=== PATIENT | female | born 1940 | race Caucasian/White ===

== ENCOUNTER 2021-10-17 07:45 | Outpatient (CLI) | payer MEDICARE, OTHER, SELFPAY ==
--- NOTE | 2021-10-28 09:26 | WPDSLEEPSTUD ---
Sleep Study Date of Study: 10/17/21 Ordering Provider: Sury Louie MD Interpreting Physician: Regina Molina MD Sleep Study Type: CPAP Titration Height: 1.65 m Weight: 93.894 kg Body Mass Index: 34.4 Neck Circumference (inches): 14.5 [place]: 6 Reason for Sleep Study History of sleep apnea with initial testing over 10 years ago, used CPAP in the past; now has intermittent atrial fibrillation, poor quality sleep Sleep History Leatha Aparicio is a 80 year old female with who atrial fibrillation referred by her entry level staff accountant for evaluation. She has a dual-chamber pacemaker. She had a sleep study over 10 years ago showing severe obstructive sleep apnea and has used CPAP for years. She has a difficult time falling asleep, she wakes up in the cook helper dessert hours and has excessive daytime sleepiness. There is a family history with her oldest daughter also having sleep apnea. She occasionally awakens from sleep feeling short of breath and occasionally awakens at night with heartburn, belching or coughing. She does not snore and others do not complain that she snores loudly. She constantly has trouble sleeping with a cold. She does not wake up gasping for breath at night or have breathing problems at night reported to her by others. She does not sweat excessively at night or notice her heart pounding or beating irregularly at night. She constantly falls asleep during the day, involuntarily but never while driving. She does not have loss of muscle tone with strong emotion. She does not report daytime difficulties due to excessive sleepiness. She occasionally feels paralyzed on waking or falling asleep. She does not have vivid dreamlike scenes upon awakening or falling asleep. She does not feel afraid to go to sleep. She does not have nightmares. She constantly remembers her dreams. She does not have racing thoughts, feelings of sadness, depression or anxiety. She does not notice parts of her body jerking and she does not kick at night. She denies having crawling or aching feelings in her legs or any kind of leg pain at night. She does not have morning jaw pain. She does not grind her teeth during sleep. She occasionally is awakened by pain at night, occasionally wakes up feeling stiff in the morning with sore achy muscles and pain in the neck and spine. She has fatigue. Normal bedtime is 10:30 p.m. taking a few hours to fall asleep, waking 3 times at night, and she reports staying awake sometimes for a couple of hours. While awake, she goes to the bathroom. Her morning wake time varies. She takes naps in the afternoon or evening. A short nap 10 or 15 minutes long may be refreshing. She is always drowsy after waking and she remains sleepy throughout the day. Habits: Denies caffeine, alcohol and recreational drugs. [facility] Past Medical History Medical History (Updated 10/28/21 @ 12:18 by Regina Molina MD) Atrial fibrillation, chronic Cardioversion 07/08/2021, converted to sinus, return to atrial fib Chronic back pain Chronic kidney disease History of COVID-19 02/17/2021 Hyperlipidemia Hypertension Obstructive sleep apnea Parkinsons disease Surgical History Surgical History (Updated 10/28/21 @ 09:46 by Regina Molina MD) History of cholecystectomy History of permanent cardiac pacemaker placement V sensed V paced Social History Social History (Updated 10/28/21 @ 09:46 by Regina Molina MD) Social History: . Smoking status: Never smoker Alcohol intake: never Substance use: never Medications Medications: Carbidopa levodopa 25-100 Allopurinol 100 mg Atorvastatin 20 mg daily Vitamin B12 a 1000 mcg daily Apixaban 5 mg b.i.d. Ergocalciferol vitamin D2 1250 mcg weekly Calcitriol 0.25 mcg 1 capsule daily Amlodipine 10 mg, half tablet daily Tylenol capsule p.r.n. Lisinopril 20 mg 1 and half tablets daily Metoprolol tartrate 25 mg b.i.d. Sleep Procedure This test was performed using
[2021-10-28 12:19] VITALS: BMI 34.4
== END 2021-10-18 07:07 | disposition home or self-care (01) ==
LOC: ANHCSM 07:48
PROVIDERS: PCP Internal Medicine
DX: G47.33 Obstructive sleep apnea (adult) (pediatric) (principal)
CPT/HCPCS: 95811

== ENCOUNTER 2023-10-09 16:34 | Inpatient (IN) | payer MEDICARE, OTHER, SELFPAY ==
[2023-10-09] VITALS (13 sets, daily range): BP systolic 95–145; BP diastolic 70–105; PULSE 85–111; RESP 15–28; TEMP 36.5–36.9; O2SAT 94–100; BMI 34.5
--- NOTE | ~2023-10-09 | CT_ITS ---
EXAMINATION: CT brain wo con DATE: 10/09/2023 18:07 INDICATION: syncope . TECHNIQUE: Computed tomography (CT) of the head was performed without intravenous contrast. The mA wa s adjusted according to patient size. Iterative reconstruction technique was employed. The dose-lengt h product was 605.33 mGy-cm. COMPARISON: None. FINDINGS: No acute intracranial hemorrhage or extra-axial fluid collection. No hydrocephalus, mass, or herniation. No acute ischemic infarct. Unremarkable dural venous sinus attenuation. No acute osseous abnormality. The aerated spaces are clear. Moderate atrophy and chronic white matter change. Atherosclerotic intracranial calcification. Bilater al lens replacements. Multiple subcutaneous cysts many of which have wall calcification. IMPRESSION: No acute intracranial process. Reviewed, dictated and finalized at location K.
--- NOTE | ~2023-10-09 | XR_ITS ---
EXAMINATION: XR chest 1V portable Exam Date/Time: 10/09/2023 17:30 CDT HISTORY: syncope Comparison: None. RESULT: Lines, tubes, and devices: Left chest pacer with intact leads. Lungs and pleura: Very low lung volumes with crowding. Streaky bibasilar opacities. Cardiomediastinal silhouette: Stable. Other: No acute osseous or upper abdominal finding. IMPRESSION: Study limited by degree of inspiration. Low volumes with crowding and likely bibasilar atelectasis. Reviewed, dictated and finalized at location K. IMPRESSION: Study limited by degree of inspiration. Low volumes with crowding and likely bi basilar atelectasis.
--- NOTE | 2023-10-09 16:45 | ED.SEIZURE ---
HPI - Seizure General Chief Complaint: Seizure Stated Complaint: ?SEIZURE Time Seen by Provider: 10/09/23 16:44 Source: patient and EMS Mode of arrival: EMS History of Present Illness HPI Narrative: 82 years old white female came to the hospital by ambulance from home with possible seizure-like activity. Her reported to the EMT that patient was sitting suddenly I rolled backward, mouth open, unresponsive to his commands, lasted for few minutes then back to normal with nausea and vomiting and dizziness. patient's family telling me that patient blacked out 2 times in the past 6 weeks and today is 3. Was hospitalized at [facility] and got discharge 5 days ago without a specific diagnosis. Related Data Allergies Allergy/AdvReac Type Severity Reaction Status Date / Time Penicillins Allergy Rash Verified 10/09/23 16:45 Review of Systems Review of Systems: All systems reviewed & are unremarkable except as noted in HPI and below PMFSH Past Medical History Medical History Atrial fibrillation, chronic Cardioversion 07/08/2021, converted to sinus, return to atrial fib Chronic back pain Chronic kidney disease History of COVID-19 02/17/2021 Hyperlipidemia Hypertension Obstructive sleep apnea Parkinsons disease Surgical History Surgical History History of cholecystectomy History of permanent cardiac pacemaker placement V sensed V paced Social History Social History Social History: . Smoking status: Never smoker Alcohol intake: never Substance use: never Exam Narrative: General appearance: Well-developed, well-nourished Holding vomiting bag in hands, looks ill Skin: Normal color Head: Normocephalic, nontraumatic Eyes: Clear conjunctiva ENT: Oropharynx normal, ears normal, nose normal Neck: Supple, nontender Chest and respiratory: Airway patent, no respiratory distress, no accessory muscle use Heart: Regular rate/rhythm Abdomen: Soft, nontender, no organomegaly, quiet bowel sounds Vascular: Normal peripheral pulses, normal capillary refill. Musculoskeletal: Normal range of motion, nontender back Neurologic: Alert and oriented ?3, CAMPAIGN ADVISOR is normal as tested, no gross motor deficit Course Vital Signs Vital signs: Vital Signs Temperature 36.9 C 10/09/23 16:35 Pulse Rate 94 10/09/23 16:35 Respiratory Rate 15 10/09/23 16:35 Blood Pressure 114/72 10/09/23 16:35 Pulse Oximetry 96 10/09/23 16:35 Oxygen Delivery Room Air 10/09/23 16:35 Temperature 36.9 C 10/09/23 16:35 Pulse Rate 88 10/09/23 21:17 Respiratory Rate 18 10/09/23 21:17 Blood Pressure 119/70 10/09/23 19:45 Pulse Oximetry 99 10/09/23 21:17 Oxygen Delivery Room Air 10/09/23 16:47 MDM - Seizure Lab Data 10/09/23 17:13 10/09/23 17:13 Labs: Lab Results 10/09/23 10/09/23 Range/Units 17:13 20:02 WBC 11.6 H (4.5-10.0) K/mm3 RBC 4.77 (4.2-5.4) M/mm3 Hgb 14.3 (12.0-15.0) g/dL Hct 46.1 (37.0-47.0) % MCV 96.6 (80-100) fl MCH 30.0 (26-34) pg MCHC 31.0 L (32-36) g/dl RDW 14.8 H (11.5-14.5) % Plt Count 209 (150-375) k/mm3 MPV 10.9 H (7.4-10.4) fl Immature Gran % (Auto) 0.8 H (0-0.5) % Neut % (Auto) 71.8 (45.5-73.1) % Lymph % (Auto) 17.4 L (18.3-44.2) % [place] % (Auto) 9.3 H (2.6-8.5) % Eos % (Auto) 0.5 (0-4.4) % Baso % (Auto) 0.2 (0.2-1.2) % Lymph # (Auto) 2.02 (0.9-3.2) K/mm3 [place] # (Auto) 1.1 H (0.1-0.6) K/mm3 Eos # (Auto) 0.1 (0-0.3)
--- NOTE | 2023-10-09 16:56 | ECG_ITS ---
SEE SCANNED COPY FOR CONFIRMED REPORT MTDD
[2023-10-09 17:18] LABS: Basophils Percent Auto 0.2 % (0.2-1.2); Eosinophils Absolute Auto 0.1 K/mm3 (0-0.3); Eosinophils Percent Auto 0.5 % (0-4.4); Hematocrit 46.1 % (37.0-47.0); Hemoglobin 14.3 g/dL (12.0-15.0); Immature Granulocyte Absolute 0.09 K/mm3 (0.00-0.031); Immature Granulocyte Percent A 0.8 % (0-0.5); Lymphocytes Absolute Auto 2.02 K/mm3 (0.9-3.2); Lymphocytes Percent Auto 17.4 % (18.3-44.2); Mean Corpuscular Volume 96.6 fl (80-100); Mean Platelet Volume 10.9 fl (7.4-10.4); Monocytes Absolute Auto 1.1 K/mm3 (0.1-0.6); Monocytes Percent Auto 9.3 % (2.6-8.5); Neutrophils Absolute Auto 8.4 K/mm3 (1.3-6.7); Neutrophils Percent Auto 71.8 % (45.5-73.1); Platelet Count Result 209 k/mm3 (150-375); Red Blood Count 4.77 M/mm3 (4.2-5.4); Red Cell Distribution Width 14.8 % (11.5-14.5); White Blood Count 11.6 K/mm3 (4.5-10.0)
[2023-10-09] MEDS: SODIUM CHLORIDE 0.9% IV 1,000 ML 999 ML IV CONT (17:20)
[2023-10-09] MEDS: MECLIZINE HCL 25 MG TABLET PO (17:20)
[2023-10-09] MEDS: diazePAM INJ (*CRX) 10 MG/2 ML SYRINGE 5 MG IV PUSH (17:21)
[2023-10-09] MEDS: ONDANSETRON INJ 4 MG/2 ML VIAL 8 MG IV PUSH (17:23)
[2023-10-09 17:28] LABS: Alanine Aminotransferase 6 U/L (6-35); Albumin Level 4.1 g/dL (3.5-5.1); Alkaline Phosphatase 95 U/L (38-126); Anion Gap 7 mmol/L (4-12); Aspartate Amino Transferase 13 U/L (14-36); Bilirubin,Total 0.8 mg/dL (0.2-1.3); Blood Urea Nitrogen 27 mg/dL (7-17); Calcium 9.6 mg/dL (8.4-10.2); Carbon Dioxide 27 mmol/L (22-30); Chloride 102 mmol/L (98-107); Estimated CRCL calculation 35 ml/min; Estimated Glomerular Filt Rate 39; Glucose 152 mg/dL (65-110); Potassium 3.6 mmol/L (3.4-5.0); Sodium 136 mmol/L (137-145)
[2023-10-09 17:29] LABS: INR 1.3; Partial Thromboplastin Time 23.5 Seconds (22.3-36.8); Prothrombin Time 17.3 Seconds (11.1-14.7)
[2023-10-09 17:40] LABS: Troponin I < 0.012 ng/mL (0.000-0.034)
--- NOTE | 2023-10-09 20:13 | PM.IMHP ---
H&P: HPI History of Present Illness Date/Time: 10/09/23 20:13 Chief Complaint: syncope Narrative: This is an 82-year-old female with past medical history significant for hypertension, gout, obstructive sleep apnea, atrial fibrillation, chronic back pain, chronic kidney disease, Parkinson's disease. Patient was brought to the emergency room after having episode of syncope while sitting at the table patient had a brief loss of consciousness, according to patient she had this recent admission to outside hospital for the same reason with extensive workup which was essentially nonrevealing. patient denies any fevers, rigors, chills, nausea, vomiting, diarrhea, chest pain, abdominal pain, palpitations, No incontinence of stool or urine. patient has been placed in observation for further evaluation management and treatment. EXAMINATION:? XR chest 1V portable Exam Date/Time:? 10/09/2023 17:30 CDT HISTORY: syncope ? Comparison:? None. RESULT: Lines, tubes, and devices:? Left chest pacer with intact leads. Lungs and pleura:? Very low lung volumes with crowding. Streaky bibasilar opacities. Cardiomediastinal silhouette:? Stable. Other:? No acute osseous or upper abdominal finding. ? IMPRESSION: Study limited by degree of inspiration. Low volumes with crowding and likely bibasilar atelectasis. EXAMINATION: CT brain wo con DATE: 10/09/2023 18:07 INDICATION: syncope . TECHNIQUE: Computed tomography (CT) of the head was performed without intravenous contrast. The mA was adjusted according to patient size. Iterative reconstruction technique was employed. The dose-length product was 605.33 mGy-cm. COMPARISON: None. FINDINGS: No acute intracranial hemorrhage or extra-axial fluid collection. No hydrocephalus, mass, or herniation. No acute ischemic infarct. Unremarkable dural venous sinus attenuation. No acute osseous abnormality. The? aerated spaces are clear. Moderate atrophy and chronic white matter change. Atherosclerotic intracranial calcification. Bilateral lens replacements. Multiple subcutaneous cysts many of which have wall calcification. IMPRESSION:? No acute intracranial process. Review of Systems Review of Systems: syncope Constitutional: Constitutional: Denies chills, Denies fatigue, Denies fever(s), Denies malaise and Denies weakness Eyes: Eyes: Denies change in vision ENT: Denies dysphagia and Denies odynophagia Cardiovascular: Cardiovascular: Denies chest pain, Denies leg edema, Denies radiating jaw, neck or arm pain and Denies palpitations Respiratory: Respiratory: Denies chest congestion and Denies cough Gastrointestinal: Gastrointestinal: Denies abdominal pain, Denies diarrhea, Denies nausea and Denies vomiting Genitourinary: Genitourinary: Denies dysuria Musculoskeletal: Musculoskeletal: Denies myalgias Integumentary/Breasts: Skin/Breast: Denies rash Neurologic: Denies focal weakness and Denies Sensory deficit (Neuro) Psychiatric: Psychiatric: Reports no additional psychiatric complaints and Reports as per HPI Endocrine: Endocrine: Denies cold intolerance, Denies fatigue, Denies flushing, Denies heat intolerance, Denies polyphagia, Denies polydipsia, Denies polyuria and Denies palpitations Hematologic/Lymphatic: Hematologic/Lymphatic: Reports no additional hematologic/lymphatic complaints and Reports as per HPI Allergic/Immunologic: Allergic/Immunologic: Reports no additional allergic/immunologic complaints and Reports as per HPI PMFSH Past Medical History Medical History (Updated 10/10/23 @ 02:37 by Benito Prado MD) Atrial fibrillation, chronic Cardioversion 07/08/2021, converted to sinus, return to atrial fib Chronic back pain Chronic kidney disease History of COVID-19 02/17/2021 Hyperlipidemia Hypertension Obstructive sleep apnea Parkinsons disease Surgical History Surgical History History
[2023-10-09 20:15] LABS: Appearance Urine Cloudy (Clear); Bacteria Urine 2+ /hpf; Bilirubin Urine Negative (Negative); Blood Urine Negative (Negative); Color Urine Yellow (Yellow); Glucose Urine UA Negative (Negative); Ketones Urine Trace mg/dL (Negative); Leukocyte Esterase Ur Negative LEU/UL (Negative); Nitrate Urine Negative (Negative); Non Pathogenic Casts 0-2; Protein Urine Negative (Negative); RBC Urine 0-2 /hpf (0-2); Specific Grav Ur 1.017 (1.001-1.035); Squamous Epithelial Cell Urine Few /hpf (Few); WBC Urine 0-5 /hpf (0-3)
[2023-10-09 20:24] LABS: Add Urine Microscopic? YES
[2023-10-09] MEDS: SODIUM CHLORIDE 0.9% IV 1,000 ML 100 ML IV CONT (21:44)
[2023-10-10] VITALS (10 sets, daily range): BP systolic 99–125; BP diastolic 48–76; PULSE 78–96; RESP 14–20; TEMP 36.3–36.7; O2SAT 95–99; BMI 34.5
[2023-10-10] MEDS: SODIUM CHLORIDE 0.9% IV 1,000 ML 100 ML IV CONT (09:10)
[2023-10-10] MEDS: APIXABAN 5 MG TABLET PO ×2 (09:11→17:28)
[2023-10-10] MEDS: ATORVASTATIN 20 MG TABLET PO (09:23)
[2023-10-10] MEDS: allopurinoL 100 MG TABLET PO ×2 (09:23→17:28)
[2023-10-10] MEDS: CARBIDOPA/LEVODOPA 25/100 MG TABLET 3 TABLET PO ×3 (09:23→17:28)
--- NOTE | 2023-10-10 10:42 | PM.IMPN ---
Progress Note: A&P Assessment and Plan (1) Syncope: Code(s): R55 - Syncope and collapse Status: Acute Assessment and Plan: Patient states this started back in August and continues to happen about once a week and lasts for about 5 minutes -does not sound like BPPV entirely since head movements do not exacerbate s/s -no significant abnormalities with her electrolytes, pt reports no changes in diet -will interrogate pacemaker -will obtain [facility] records -CTH this stay WN, does show atrophy and chronic white matter changes -patient would benefit from MRI but she has a pacemaker so this cannot be done here. Could consider cerebellar pathology but patient does not have other cerebellar symptoms on exam. No other symptoms of stroke -will obtain orthostatic blood pressures as patient has history of Parkinson's, could be autonomic dysfunction -will consult neurology -no infection suspected (2) Obstructive sleep apnea: Code(s): G47.33 - Obstructive sleep apnea (adult) (pediatric) Status: Acute Assessment and Plan: CPAP at nighttime (3) Chronic back pain: Code(s): M54.9 - Dorsalgia, unspecified; G89.29 - Other chronic pain Status: Acute Assessment and Plan: Tylenol p.r.n. (4) Atrial fibrillation, chronic: Code(s): I48.20 - Chronic atrial fibrillation, unspecified Status: Acute Assessment and Plan: Currently has a pacemaker which is going to be interrogated -continue Eliquis for stroke prevention (5) Chronic kidney disease: Code(s): N18.9 - Chronic kidney disease, unspecified Status: Acute Assessment and Plan: Monitor labs (6) Parkinsons disease: Code(s): G20 - Parkinson's disease Status: Acute Assessment and Plan: continue carbidopa levodopa -neurology consult Time Spent With Patient Time with patient: 25 - 35 minutes Subjective Date/time seen: 10/10/23 10:42 Interval history: Pt is a 82-year-old female here for syncope. Patient states that she was in the kitchen and felt weak in that she was going to pass out so she lowered herself to the floor. She does not think she lost consciousness but says she was close. She denies chest pain, ringing in the ears, or worsening dizziness with head movements. She also states laying down does not make it any worse or any better. She currently feels lightheaded a little bit. She said this happened for the 1st time in August and was hospitalized at [facility] with no findings. She isn't for sure what all they did but she did get some scans. She has no viral symptoms and overall feels okay in that regard. She has been walking to the bathroom without issue. The last time the dizziness happen was 1 week ago. She denies nausea, vomiting, weight loss, chest pain or shortness of breath. She says she is eating and drinking fine. She has no focal weaknesses and denies vision changes or speech problems. She does have a history of Parkinson's that is unchanged. She sees a neurologist in [place] Review of Systems Review of Systems: All systems reviewed & are unremarkable except as noted in HPI and below Exam Narrative: General: Well developed well nourished patient in NAD HEENT: normocephalic Neck: supple Neuro: Alert and oriented x4. Cranial nerves 2-12 intact. Equal strength in the upper and lower extremities bilaterally. No evidence of slurred speech or aphasia. Able to do [id number], no tremor CV:RRR. Telemetry shows occasional pacing with occasional PVCs and known AFib Resp:CTA Abd: Soft, non distended. No pain to palpation. Positive bowel sounds Extremities: No swelling, erythema, or pain to palpation. Objective Data Vital Signs Vital Signs: Vital Signs - 24 hr 10/09/23 16:35 10/09/23 16:47 10/09/23 16:47 Temperature 98.4 F Pulse Rate 94 Respiratory Rate 15 Blood Pr
--- NOTE | 2023-10-10 13:00 | WPDNEURCNPN ---
Assessment and Plan Assessment and plan (1) Parkinsons disease: Code(s): G20 - Parkinson's disease Status: Acute (2) Atrial fibrillation, chronic: Code(s): I48.20 - Chronic atrial fibrillation, unspecified Status: Acute (3) Syncope: Code(s): R55 - Syncope and collapse Status: Acute Plan 1. Syncopal episode with ongoing history of atrial fibrillation and ongoing Parkinson disease as she will need the observation on Med tele medication will be continued as such with no changes in the antiparkinson medication. Consult date: 10/10/23 HPI: Leatha Aparicio is a 82 year old female Admitted to the hospital through the emergency room where she was brought by the ambulance with the possibility of seizure-like activity . Her reported to the EMT the patient was sitting suddenly rolled backwards mouth became open he remained unresponsive to the verbal commands the whole episode lasted for few minutes then she was back to normal without nausea vomiting and dizziness patient has had 2 episodes in the past 6 weeks the most recent 1 was 3rd 1 he was admitted to the [facility] and got discharged without specific diagnosis. She is not allergic to any medications. She has ongoing history of chronic atrial fibrillation has undergone cardioversion which converted to sinus in July of 2021 but returned to atrial fibrillation again, the course is complicated by the chronic back pain, hyperlipidemia, hypertension, obstructive sleep apnea, Parkinson's disease. She has undergone permanent cardiac pacemaker placement her initial exam in the emergency room were grossly nonfocal. Vital signs were normal CBC was normal BMP was normal except blood sugar 152 and routine lab studies were negative head CT scan was negative for the bleed or major vascular disease EKG was with atrial fibrillation and 89 beats per minute with aberrant conduction and ventricular premature complexes head CT scan negative, patient has continued her anti parkinsonian medication 3 tablets 3 times a day with meals in addition to atorvastatin 20mg daily and apixaban 5mg twice a day [facility] Past Medical History Medical History Atrial fibrillation, chronic Cardioversion 07/08/2021, converted to sinus, return to atrial fib Chronic back pain Chronic kidney disease History of COVID-19 02/17/2021 Hyperlipidemia Hypertension Obstructive sleep apnea Parkinsons disease Surgical History Surgical History History of cholecystectomy History of permanent cardiac pacemaker placement V sensed V paced Social History Social History Social History: . Smoking status: Never smoker Alcohol intake: never Substance use: never Substance use type: does not use Do You Feel Safe in your Home?: Yes Lack of Transportation: No Lack of Food: Never True Current Housing: I Have Housing Concerned About Future Housing: No Difficulty Paying Gas/Electric Bills: No Difficulty Paying for Meds: No Currently Unemployed: No Education: High School Diploma/GED Difficulty w/ Childcare or Family Care: No Spiritual care concerns: No Meds Home Medications and Allergies Home Medications Medication Instructions Recorded Confirmed Type B12 500 mg PO DAILY 10/09/23 10/09/23 History allopurinol 100 mg tablet 100 mg PO BID 10/09/23 10/09/23 History amlodipine 5 mg tablet 5 mg PO DAILY 10/09/23 10/10/23 History apixaban 5 mg tablet (Eliquis) 5 mg PO BID 10/09/23 10/10/23 History atorvastatin 20 mg tablet 20 mg PO DAILY 10/09/23 10/09/23 History calcitriol 0.25 mcg capsule 0.25 mcg PO BID 10/09/23 10/09/23 History carbidopa 25 mg-levodopa 100 mg 3 tablet PO TID 10/09/23 10/10/23 History tablet ergocalciferol (vitamin D2) 1,250 1,250 mcg PO WEEKLY 10/09/23 10/09/23 History mcg (50,000 u
[2023-10-10 19:56] LABS: Hemoglobin A1C 6.2 % (<5.7)
[2023-10-11] VITALS (11 sets, daily range): BP systolic 120–136; BP diastolic 51–77; PULSE 74–110; RESP 18–20; TEMP 36.3–37.4; O2SAT 95–100
[2023-10-11 06:55] LABS: Hematocrit 40.5 % (37.0-47.0); Hemoglobin 12.7 g/dL (12.0-15.0); Mean Corpuscular HGB Conc 31.4 g/dl (32-36); Mean Corpuscular Hemoglobin 30.5 pg (26-34); Mean Corpuscular Volume 97.4 fl (80-100); Mean Platelet Volume 11.6 fl (7.4-10.4); Platelet Count Result 182 k/mm3 (150-375); Red Blood Count 4.16 M/mm3 (4.2-5.4); Red Cell Distribution Width 14.9 % (11.5-14.5); White Blood Count 7.9 K/mm3 (4.5-10.0)
[2023-10-11 07:19] LABS: Anion Gap 3 mmol/L (4-12); Blood Urea Nitrogen 20 mg/dL (7-17); Calcium 9.5 mg/dL (8.4-10.2); Carbon Dioxide 29 mmol/L (22-30); Chloride 106 mmol/L (98-107); Estimated CRCL calculation 37 ml/min; Estimated Glomerular Filt Rate 43; Glucose 95 mg/dL (65-110); Potassium 4.2 mmol/L (3.4-5.0); Sodium 138 mmol/L (137-145)
[2023-10-11 07:42] LABS: Glucose Point of Care 108 mg/dl (65-105)
[2023-10-11] MEDS: allopurinoL 100 MG TABLET PO ×2 (09:01→17:17)
[2023-10-11] MEDS: APIXABAN 5 MG TABLET PO ×2 (09:01→17:17)
[2023-10-11] MEDS: ATORVASTATIN 20 MG TABLET PO (09:01)
[2023-10-11] MEDS: CARBIDOPA/LEVODOPA 25/100 MG TABLET 3 TABLET PO ×3 (09:01→17:17)
[2023-10-11 11:44] LABS: Glucose Point of Care 224 mg/dl (65-105)
--- NOTE | 2023-10-11 15:20 | PM.IMPN ---
Progress Note: A&P Assessment and Plan (1) Syncope: Code(s): R55 - Syncope and collapse Status: Acute Assessment and Plan: Patient states this started back in August and continues to happen about once a week and lasts for about 5 minutes -CTH this stay WNL, does show atrophy and chronic white matter changes -no significant abnormalities with her electrolytes, pt reports no changes in diet -orthostatic blood pressures are okay 106/48 -> 125/76 -> 123/63 -TSH normal. -does not sound like BPPV entirely since head movements do not exacerbate s/s. Could consider cerebellar pathology but patient does not have other cerebellar symptoms on exam. No other symptoms of stroke -will interrogate pacemaker and pending -will obtain [facility] records; no records available yet so will resend request -patient would benefit from MRI but she has a pacemaker so this cannot be done here. -neurology consulted and appreciate their input. Willdefer to neurology about weaning patient off of Sinemet If no records forthcoming, will proceed with CTA brain. Check B12/folate Continue PT/OT Family feels the left arm BP is lower than right. Consider subclavian steal. Check BP in both arms. (2) Obstructive sleep apnea: Code(s): G47.33 - Obstructive sleep apnea (adult) (pediatric) Status: Acute Assessment and Plan: CPAP at nighttime (3) Chronic back pain: Code(s): M54.9 - Dorsalgia, unspecified; G89.29 - Other chronic pain Status: Acute Assessment and Plan: Tylenol p.r.n. (4) Atrial fibrillation, chronic: Code(s): I48.20 - Chronic atrial fibrillation, unspecified Status: Acute Assessment and Plan: Currently has a pacemaker which is going to be interrogated -continue Eliquis for stroke prevention (5) Chronic kidney disease: Code(s): N18.9 - Chronic kidney disease, unspecified Status: Acute Assessment and Plan: Monitor labs (6) Parkinsons disease: Code(s): G20 - Parkinson's disease Status: Acute Assessment and Plan: continue carbidopa levodopa -neurology following Wean off Sinemet per neurology recommendation (7) Diabetes mellitus: Code(s): E11.9 - Type 2 diabetes mellitus without complications Status: Acute Assessment and Plan: A1c 6.2. The patient's blood glucose was reviewed on 10/10 Glucose elevated at times Continue AccuCheks covering with sliding scale. Hypoglycemia protocol available as needed. Continue to monitor. Colorer consult Plan DVT prophylaxis - Giovanny Code status - full Subjective Date/time seen: 10/11/23 15:20 Interval history: 82yo female with Parkinson, AFib and CKD here for pre-syncope. Assuming care. Chart reviewed. Patient was sitting at the kitchen table when she developed dizziness with gurgling sounds then nausea and vomiting. No seizure like activity. No urine incontinence. no tongue biting. She remembers most of the event and does not think she passed out. Had similar episode with negative workup at a different hospital. No new medications. No OTC medications. Started on Sinemet about 5 months ago. No fever or chills. No furthre n/v. Eating normally since the event. She sees a neurologist in [place] who is recommendeing weaning her off of the Sinemet. Also with numbness from her umbilicus to her feet and involving her hands which started 3 weeks ago. Exam Narrative: AF 97.3 132/75 92 20 98% ra Gen - NARD Chest - CTA bilaterally, nml RR CV - irregularly irregular. Tele showing paced rhythm otherwise AFib with controlled rate Abd - Soft, NT/ND, Positive BS Ext - No pedal edema Neuro - Alert and oriented. Nonfocal exam. Heel to garay okay. Psych - Nml mood and affect Skin - Warm and dry Objective Data Vital Signs Vital Signs: Vital Signs - 24 hr 10/10/23 15:48 10/10/23 16:00 10/10/23 20:00 Temperature
[2023-10-11 16:39] LABS: Glucose Point of Care 96 mg/dl (65-105)
--- NOTE | 2023-10-11 19:11 | WPDNEUROPN ---
Progress Note: A&P Assessment and Plan (1) Diabetes mellitus: Code(s): E11.9 - Type 2 diabetes mellitus without complications Status: Acute (2) Parkinsons disease: Code(s): G20 - Parkinson's disease Status: Acute (3) Chronic kidney disease: Code(s): N18.9 - Chronic kidney disease, unspecified Status: Acute (4) Atrial fibrillation, chronic: Code(s): I48.20 - Chronic atrial fibrillation, unspecified Status: Acute (5) Syncope: Code(s): R55 - Syncope and collapse Status: Acute (6) Obstructive sleep apnea: Code(s): G47.33 - Obstructive sleep apnea (adult) (pediatric) Status: Acute Plan I would suggest continued cardiac evaluation and possible a loop recorder in view of the fact that she has had 3 spells in the last month or so. With regard to Parkinson disease he follows with another neurologist, At present she does not seem to be any need for immediate changes in the current medications. Subjective Date/time seen: 10/11/23 19:11 Interval history: the patient admitted with episode of loss of consciousness. She apparently had 2 similar episodes for which she was taken to [facility] and a investigations did not reveal any abnormality. She also has been known to have Parkinson's disease and is on treatment for the same. She has been diagnosed to atrial fibrillation. She has a cardiac pacemaker in place. Hence he is unable to get MRI. According the patient she has very brief spells lasting for 10 seconds or so in with the lapse of awareness. She did not have any tongue biting or incontinence of urine. She does not get confused after that. She has not had any significant warning prior to the onset of these spells. She has had some cardiac workup done at [facility] which did not show any abnormality. Review of Systems Review of Systems: All systems reviewed & are unremarkable except as noted in HPI and below Exam Narrative: Fully conscious alert oriented to self time place and person. Speech is fluent and articulate. No aphasia or dysarthria. No nuchal rigidity. No carotid bruit. motor system normal power and tone both upper and lowers except for mild cogwheeling and resting tremor noted on right more than left upper limb. No dyskinesias seen. no other significant abnormalities. Objective Data Vital Signs Vital Signs: Vital Signs - 24 hr 10/10/23 20:00 10/10/23 20:00 10/11/23 00:00 Temperature 36.7 C 37.3 C Pulse Rate 86 81 80 Respiratory Rate 16 20 Blood Pressure 114/68 135/72 Pulse Oximetry 99 100 Oxygen Delivery 10/10/23 22:00 10/11/23 03:39 10/11/23 00:00 Temperature Pulse Rate 78 74 84 Respiratory Rate Blood Pressure Pulse Oximetry 98 99 Oxygen Delivery CPAP CPAP 10/11/23 04:00 10/11/23 04:00 10/11/23 07:52 Temperature 37.4 C 36.5 C Pulse Rate 89 77 88 Respiratory Rate 18 20 Blood Pressure 124/51 L 120/74 Pulse Oximetry 100 97 Oxygen Delivery 10/11/23 08:00 10/11/23 11:51 10/11/23 12:05 Temperature 36.3 C L Pulse Rate 91 103 H Respiratory Rate 20 Blood Pressure 132/75 Pulse Oximetry 98 Oxygen Delivery Room Air 10/11/23 12:00 10/11/23 11:45 10/11/23 16:00 Temperature Pulse Rate 92 110 H Respiratory Rate Blood Pressure 136/64 Pulse Oximetry Oxygen Delivery 10/11/23 16:00 Temperature 36.3 C L Pulse Rate 89 Respiratory Rate 18 Blood Pressure 134/77 Pulse Oximetry 98 Oxygen Delivery Intake/Output Intake/Output: Intake & Output 10/08/23 10/09/23 10/10/23 10/11/23 23:59 23:59 23:59 23:59 Intake Total 1000 2726 1030 Balance 1000 2726 1030 Meds/Results Medications: Active Medications Generic Name Dose Route Start Last Admin Trade Name Freq PRN Reason Stop Dose Admin Acetaminophen 650 mg 10/09/23 20:14 Acetaminophen 325 Mg Tablet PO Q4H PRN Mild Pain (1-3) or Fever
[2023-10-11 20:10] LABS: Glucose Point of Care 169 mg/dl (65-105)
[2023-10-12] VITALS (7 sets, daily range): BP systolic 125–137; BP diastolic 48–84; PULSE 75–112; RESP 18–22; TEMP 36.2–36.8; O2SAT 97–100
[2023-10-12 07:29] LABS: Glucose Point of Care 166 mg/dl (65-105)
[2023-10-12 07:49] LABS: Anion Gap 5 mmol/L (4-12); Blood Urea Nitrogen 19 mg/dL (7-17); Calcium 9.5 mg/dL (8.4-10.2); Carbon Dioxide 29 mmol/L (22-30); Chloride 104 mmol/L (98-107); Estimated CRCL calculation 37 ml/min; Estimated Glomerular Filt Rate 43; Glucose 103 mg/dL (65-110); Potassium 4.1 mmol/L (3.4-5.0); Sodium 138 mmol/L (137-145)
[2023-10-12] MEDS: CARBIDOPA/LEVODOPA 25/100 MG TABLET 3 TABLET PO ×2 (08:51→12:15)
[2023-10-12] MEDS: APIXABAN 5 MG TABLET PO (08:51)
[2023-10-12] MEDS: ATORVASTATIN 20 MG TABLET PO (08:52)
[2023-10-12] MEDS: allopurinoL 100 MG TABLET PO (08:52)
[2023-10-12 09:01] LABS: Folic Acid 5.6 ng/mL (2.76->20); Vitamin B12 > 1000.0 pg/mL (239-931)
--- NOTE | 2023-10-12 09:15 | PM.DS ---
DS: Admitting Diagnosis Discharge Date 10/12/2023 Admitting Diagnosis Syncope DS: Discharge Diagnosis Discharge Diagnosis (1) Syncope: Code(s): R55 - Syncope and collapse Status: Acute Assessment and Plan: Patient states this started back in August and continues to happen about once a week and lasts for about 5 minutes -CTH this stay WNL, does show atrophy and chronic white matter changes -no significant abnormalities with her electrolytes, pt reports no changes in diet -orthostatic blood pressures are okay 106/48 -> 125/76 -> 123/63 -TSH normal. -does not sound like BPPV entirely since head movements do not exacerbate s/s. Could consider cerebellar pathology but patient does not have other cerebellar symptoms on exam. No other symptoms of stroke -will interrogate pacemaker -recent admission to [facility] with similar complaints -patient would benefit from MRI but she has a pacemaker so this cannot be done here. -neurology consulted and appreciate their input. Willdefer to neurology about weaning patient off of Sinemet - pt seen by neurology here ok to dc with her neurology follow up can have CTA of head and neck if dizziness persists. 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 (4) Atrial fibrillation, chronic: Code(s): I48.20 - Chronic atrial fibrillation, unspecified Status: Acute Assessment and Plan: Currently has a pacemaker which is going to be interrogated -continue Eliquis for stroke prevention (5) Chronic kidney disease: Code(s): N18.9 - Chronic kidney disease, unspecified Status: Acute Assessment and Plan: Monitor labs (6) Parkinsons disease: Code(s): G20 - Parkinson's disease Status: Acute Assessment and Plan: continue carbidopa levodopa -neurology following Wean off Sinemet per neurology recommendation (7) Diabetes mellitus: Code(s): E11.9 - Type 2 diabetes mellitus without complications Status: Acute Assessment and Plan: A1c 6.2. The patient's blood glucose was reviewed on 10/10 Glucose elevated at times hbaic is 6.2 pt advised to check her sugars at home and follow dm diet DS: Summary Hospital Course Hospital Course: 82-year-old female with past medical history significant for hypertension, gout, obstructive sleep apnea, atrial fibrillation, chronic back pain, chronic kidney disease, Parkinson's disease.? Patient was brought to the emergency room after having episode of syncope while sitting at the table patient had a brief loss of consciousness, according to patient she had this recent admission to outside hospital for the same reason with extensive workup which was essentially nonrevealing. patient denies any fevers, rigors, chills, nausea, vomiting, diarrhea, chest pain, abdominal pain, palpitations,? No incontinence of stool or urine. patient has been placed in observation for further evaluation management and treatment. pt had ct head here in hospital and was seen by neurology here. Time Spent with Patient Time attestation: Total time spent providing and/or coordinating discharge services:50 minutes on day of dc Exam Narrative: Gen - elderly lady Chest - CTA bilaterally, nml RR CV - irregularly irregular. Tele showing paced rhythm otherwise AFib with controlled rate Abd - Soft, NT/ND, Positive BS Ext - No pedal edema Neuro - Alert and oriented. Nonfocal exam. Heel to garay okay. Psych - Nml mood and affect Skin - Warm and
[2023-10-12 11:27] LABS: Glucose Point of Care 213 mg/dl (65-105)
[2023-10-12] MEDS: INSULIN ASPART (*BKC) 100 UNITS/ML SUB-Q (12:15)
== END 2023-10-12 14:40 | disposition home or self-care (01) | DRG 312 ==
LOC: ANHED 22:33 → ANH3MEDSUR 23:03
PROVIDERS: Internal Medicine; Physician Assistant; Admitting Provider Internal Medicine; Emergency Provider Emergency Medicine; PCP Internal Medicine; Visit Provider Family Medicine
DX: R55 Syncope and collapse (principal); I48.20 Chronic atrial fibrillation, unspecified; Z95.0 Presence of cardiac pacemaker; E78.5 Hyperlipidemia, unspecified; E11.22 Type 2 diabetes mellitus with diabetic chronic kidney disease; G47.33 Obstructive sleep apnea (adult) (pediatric); G20.A1 Parkinson's disease without dyskinesia, without mention of fluctuations; G89.29 Other chronic pain; I12.9 Hypertensive chronic kidney disease with stage 1 through stage 4 chronic kidney disease, or unspecified chronic kidney disease; M54.9 Dorsalgia, unspecified; M10.9 Gout, unspecified; N18.9 Chronic kidney disease, unspecified; Z99.89 Dependence on other enabling machines and devices; Z88.0 Allergy status to penicillin; Z86.16 Personal history of COVID-19; Z90.49 Acquired absence of other specified parts of digestive tract
CPT/HCPCS: 36415; 70450; 71045; 80048; 80053; 81001; 82607; 82746; 82948; 83036; 84443; 84484; 85025; 85027; 85610; 85730; 93005; 96361; 96374; 96375; 97110; 97116; 97161; 97165; 99285; A9270; G0378; J1815; J2405; J3360; J7030